=== PATIENT | male | born 1980 | race African-American/Black ===

== ENCOUNTER 2017-07-15 22:20 | Emergency (ER) | payer SELFPAY ==
[~2017-07-15] VITALS: Ht 167.6 cm; Wt 72.6 kg
[2017-07-15 23:24] VITALS: BP 159/89
[2017-07-15] MEDS ORDERED: GENTAMICIN SUL3.5 GM OP (23:31)
[2017-07-15 23:39] VITALS: BP 159/89
--- NOTE | 2017-07-18 07:11 | Emergency Room Report ---
History of Present Illness General Chief Complaint: Eye Problems Source: Patient Present Illness HPI Patient present with complaints of left eye irritation He complains of itching to the eye and also discharged the past 2 days Denies any visual change denies any pain to the eye itself Denies any injury denies any contact with foreign body Denies any neck pain or photophobia Patient History Past Medical History: see triage record Pertinent Family History: none Reviewed Nursing Documentation: PMH: Agreed, PSxH: Agreed Nursing Documentation-PMH Past Medical History: No Stated History Review of Systems All Other Systems: negative except mentioned in HPI Physical Exam Vital Signs Date Time Temp Pulse Resp B/P (MAP) Pulse Ox O2 Delivery O2 Flow Rate FiO2 07/15/17 22:27 98.1 92 18 163/93 98 07/15/17 23:24 Room Air Sp02 EP Interpretation: reviewed, normal General Appearance: well appearing, no apparent distress Head: normocephalic, atraumatic Eyes: left eye other - Conjunctival erythema, yellowish discharge medially, bilateral eye PERRL, bilateral eye EOMI ENT: hearing grossly normal, normal pharynx Neck: supple Respiratory: lungs clear Cardiovascular #1: regular rate, rhythm Musculoskeletal: normal inspection Neurologic: alert, oriented x3, responsive, patient support specialist III-XII nml as tested Skin: normal color, no rash Lymphatic: no adenopathy Medical Decision Making Diagnostic Impression: Primary Impression: conjunctivitis, bacterial ER Course Patient's exam is in line with a conjunctivitis Given the discharge in the mild irritation patient was placed on antibiotics No signs of any obvious foreign bodies The patient is stable for close followup Last Vital Signs Date Time Temp Pulse Resp B/P (MAP) Pulse Ox O2 Delivery O2 Flow Rate FiO2 07/15/17 23:39 98.0 76 18 159/89 99 Room Air Status: improved Disposition: HOME, SELF-CARE Condition: Stable Scripts Gentamicin Sulfate* (GENTAMICIN SULFATE*) 3.5 Gm Oint...g. 3.5 GM OP BID for 7 Days, GM Prov: TERESA ALVARADO D.O. 07/15/17 Referrals: NOT CHOSEN [facility]/,REFERRING (PCP) Patient Instructions: Bacterial Conjunctivitis Additional Instructions: Patient is provided with the discharge instructions notified to follow up with primary doctor in the next 2-3 days otherwise return to the er with any worsening symptoms. Please note that this report is being documented using DRAGON technology. This can lead to erroneous entry secondary to incorrect interpretation by the dictating instrument. TERESA ALVARADO D.O. Jul 18, 2017 07:11
== END 2017-07-15 23:39 | disposition home or self-care (01) ==
LOC: EMR 22:59
DX: H10.89 Other conjunctivitis (principal); H57.8 Other specified disorders of eye and adnexa
CPT/HCPCS: 99283

== ENCOUNTER 2017-07-18 20:59 | Emergency (ER) | payer SELFPAY ==
[~2017-07-18] VITALS: Ht 167.6 cm; Wt 72.6 kg
[~2017-07-18 20:59] MED LIST: GENTAMICIN SUL3.5 GM OP
[2017-07-18 21:28] VITALS: BP 154/92
[2017-07-18] MEDS ORDERED: POLYTRIM OP SOL10 ML OPHTHALM (21:50)
--- NOTE | 2017-07-18 21:50 | Emergency Room Report ---
History of Present Illness General Chief Complaint: Eye Problems Source: Patient Present Illness HPI Is a 37-year-old male with no past medical history. He was here recently for left eye swelling and had a sty. He was prescribed gentamicin. He said the stye resolved he still has puffiness to the lower lip. No fever chills but no drainage. No other complaint. Allergies: Coded Allergies: No Known Allergies (Unverified , 07/18/17) Patient History Past Medical History: see triage record, old chart reviewed Past Surgical History: none Social History: Reports: smoking Immunizations: other Reviewed Nursing Documentation: PMH: Agreed, PSxH: Agreed Nursing Documentation-PMH Past Medical History: No Stated History Review of Systems Eye: Denies: eye pain, blurred vision ENT: Denies: ear pain, nose congestion, throat swelling Respiratory: Denies: cough, shortness of breath Cardiovascular: Denies: chest pain, palpitations Gastrointestinal: Denies: abdominal pain, diarrhea, nausea, vomiting Musculoskeletal: Denies: back pain, joint pain Skin: Denies: rash Neurological: Denies: headache, numbness Endocrine: Denies: increased thirst, increased urine Hematologic/Lymphatic: Denies: easy bruising All Other Systems: negative except mentioned in HPI Physical Exam Vital Signs Date Time Temp Pulse Resp B/P (MAP) Pulse Ox O2 Delivery O2 Flow Rate FiO2 07/18/17 21:09 98.2 96 16 160/99 100 Room Air vitals with high blood pressure Sp02 EP Interpretation: reviewed, normal General Appearance: well appearing, no apparent distress, alert Head: normocephalic, atraumatic Eyes: left eye other - Left eye: puffiness and edema to lower lid. conjunctiva injected., bilateral eye PERRL, bilateral eye EOMI ENT: hearing grossly normal, normal pharynx Neck: full range of motion, supple, no meningismus Respiratory: chest non-tender, lungs clear, normal breath sounds Cardiovascular #1: regular rate, rhythm, no murmur Gastrointestinal: normal bowel sounds, non tender, no mass, no organomegaly, no bruit, non-distended Musculoskeletal: back normal, gait/station normal, normal range of motion Psychiatric: mood/affect normal Skin: warm/dry Medical Decision Making Diagnostic Impression: Primary Impression: Blepharitis of eyelid of left eye Qualified Codes: H01.005 - Unspecified blepharitis left lower eyelid ER Course Patient with blepharitis/conjunctivitis. We'll switch of antibiotics 2 Polytrim. No visual acuity problem. Last Vital Signs Date Time Temp Pulse Resp B/P (MAP) Pulse Ox O2 Delivery O2 Flow Rate FiO2 07/18/17 21:28 98.2 78 16 154/92 100 Room Air Status: improved Disposition: HOME, SELF-CARE Condition: Stable Scripts Polymyxin/Trimethoprim (Polytrim Eye Drops) 10 Ml Drops 2 DROP OPHTHALM THREE TIMES A DAY, #1 EA Instill in affected eye for 7 days Prov: ANKIT MORA M.D. 07/18/17 Patient Instructions: Bacterial Conjunctivitis, [id number] Additional Instructions: Clean eyelids with baby shampoo. Followup with your Dr. in 7 days. Return if worse. ANKIT MORA M.D. Jul 18, 2017 21:50
[2017-07-18 22:05] VITALS: BP 154/92
== END 2017-07-18 22:05 | disposition home or self-care (01) ==
LOC: EMR 21:48
DX: H01.005 Unspecified blepharitis left lower eyelid (principal); F17.200 Nicotine dependence, unspecified, uncomplicated
CPT/HCPCS: 99283

== ENCOUNTER 2019-06-12 21:14 | Emergency (ER) | payer OTHER ==
[~2019-06-12] VITALS: Ht 170.2 cm; Wt 68.0 kg
[~2019-06-12 21:14] MED LIST changes: +POLYTRIM OP SOL10 ML OPHTHALM
[2019-06-12 21:45] VITALS: BP 155/95
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
[2019-06-12] MEDS ORDERED: HYDROcodone/Acetamin 5/325 tab ORAL ONE (22:45)
[2019-06-12] MEDS ORDERED: IBUPROFEN600 MG ORAL (23:26)
[2019-06-12] MEDS ORDERED: HYDROCODON-ACE1 EA15 ORAL (23:26)
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
[2019-06-12 23:40] VITALS: BP 148/88
--- NOTE | 2019-06-12 23:40 | NUR ---
ER DISCHARGE NOTE: Patient is cleared to be discharged per ERMD, pt is aox4, on room air, with stable vital signs. pt was given dc and prescription instructions, pt was able to verbalize understanding, pt id band removed without complications. pt is able to ambulate with steady gait. pt took all belongings.
--- NOTE | 2019-06-13 11:49 | Diagnostic Imaging Report ---
Indication: Pain, swelling, trauma Technique: 3 views right hand Comparison: none Findings: There is an old healed fracture deformity of the fifth metacarpal. There is a fourth metacarpal fracture deformity which demonstrates some cortical irregularity on the lateral view and this likely acute. There is some dorsal soft tissue swelling.. Impression: Positive for acute fourth metacarpal fracture Old fifth metacarpal fracture also noted This agrees with the preliminary interpretation reported by the emergency room physician in the electronic medical record
== END 2019-06-12 23:40 | disposition home or self-care (01) ==
LOC: EMR 22:22
DX: S62.364A Nondisplaced fracture of neck of fourth metacarpal bone, right hand, initial encounter for closed fracture (principal); Y04.0XXA Assault by unarmed brawl or fight, initial encounter
CPT/HCPCS: 73130; Z7502; 29125; 99283

== ENCOUNTER 2019-06-20 16:11 | Emergency (ER) | payer OTHER ==
[~2019-06-20] VITALS: Ht 167.6 cm; Wt 74.8 kg
[~2019-06-20 16:11] MED LIST changes: +HYDROCODON-ACE1 EA15 ORAL; +IBUPROFEN600 MG ORAL
[2019-06-20 16:25] VITALS: BP 143/85
--- NOTE | 2019-06-20 16:41 | Emergency Room Report ---
History of Present Illness General Chief Complaint: Upper Extremity Injury Source: Patient Present Illness HPI 39-year-old male with history of fracture of the right metacarpal 1 week ago, was seen at [facility], x-ray was done and patient was here for follow-up visit regarding his pain. Patient reports that he was unaware that he has a follow- up with Ortho take the splint off himself swelling is noted on the affected side. Patient rating the pain 7 out of 10 without radiation. Denies any injury , tingling or numbness. Has full range of motion. Denies chest pain, shortness of breath, palpitation, or other associated symptoms. Patient also wants to be cleared to go back to work. Allergies: Coded Allergies: No Known Allergies (Unverified , 07/18/17) Patient History Past Medical History: see triage record Past Surgical History: unable to obtain Pertinent Family History: none Immunizations: UTD Reviewed Nursing Documentation: PMH: Agreed; PSxH: Agreed Nursing Documentation-PMH Past Medical History: No Stated History Review of Systems All Other Systems: negative except mentioned in HPI Physical Exam Vital Signs Date Time Temp Pulse Resp B/P (MAP) Pulse Ox O2 Delivery O2 Flow Rate FiO2 06/20/19 16:19 98.4 100 21 143/85 (104) 96 Room Air Sp02 EP Interpretation: reviewed, normal General Appearance: no apparent distress, alert, GCS 15, non-toxic Head: normocephalic, atraumatic Eyes: bilateral eye normal inspection, bilateral eye PERRL ENT: hearing grossly normal, normal pharynx, no angioedema, normal voice Neck: full range of motion, supple, supple/symm/no masses Respiratory: chest non-tender, lungs clear, normal breath sounds, no wheezing, speaking full sentences Cardiovascular #1: regular rate, rhythm, no edema, no murmur, normal capillary refill Cardiovascular #2: 2+ radial (R), 2+ radial (L) Gastrointestinal: normal inspection, normal bowel sounds, non tender, soft, no mass Genitourinary: normal inspection, no CVA tenderness Musculoskeletal: back normal, digits/nails normal, gait/station normal, normal range of motion, no calf tenderness, swelling - right dorsal hand, tender - right 4th and 5th metacarpal bones Neurologic: normal inspection, alert, oriented x3 Psychiatric: normal inspection, judgement/insight normal, memory normal Skin: no rash Lymphatic: normal inspection, no adenopathy Procedures Splinting Splinting : Consent: Verbal Location: right hand Hand-Made Type: plaster Pre-Proc Neuro Vasc Exam: normal Patient Tolerated: Well Medical Decision Making PA Attestation Diagnosis and treatment plans were reviewed and discussed with my supervising physician Dr. Larson Diagnostic Impression: Primary Impression: Metacarpal bone fracture ER Course 39-year-old male with history of fracture of the right metacarpal 1 week ago, was seen at [facility], x-ray was done and patient was here for follow-up visit regarding his pain. Patient reports that he was unaware that he has a follow- up with Ortho take the splint off himself swelling is noted on the affected side. Patient rating the pain 7 out of 10 without radiation. Denies any injury , tingling or numbness. Has full range of motion. Denies chest pain, shortness of breath, palpitation, or other associated symptoms. Patient also wants to be cleared to go back to work. Ddx considered but are not limited to : Fracture of metacarpal bone right hand, hand sprain, and strain Vital signs: are WNL, pt. is afebrile H&PE are most consistent with: Fracture of metacarpal bone right hand second encounter ORDERS: Tylenol 3, ibuprofen 800 ED INTERVENTIONS: Re-splinting DISCHARGE: At this time pt. is stable for d/c to home. Will provide printed patient care instructions, and any necessary prescriptions. Care plan and follow up instructions have been discussed with the patient prior to discharge. I gave patient a list of satellite specialist and family clinics that he could going to for referral for Ortho patient understands I cannot clear him if he has a specialist versus fracture patient also was not wearing his splint currently and he was taking it off a daily basis. No further imaging is necessary at this time as patient was just seen here a week ago diagnosed with fracture of metacarpal bone and no injury has occurred after and denies any tingling or numbness. Last Vital Signs Date Time Temp Pulse Resp B/P (MAP) Pulse Ox O2 Delivery O2 Flow Rate FiO2 06/20/19 16:25 98.4 67 21 143/85 96 Room Air Disposition: HOME, SELF-CARE Condition: Stable Scripts Ibuprofen (Ibu) 800 Mg Tablet 800 MG PO TID, #30 TAB Prov: Boby Miller 06/20/19 Acetaminophen With Codeine (T#3) (TYLENOL #3 TAB*) Y Tab 1 TAB ORAL Q12HR PRN for For Pain for 3 Days, #6 TAB Prov: Boby Miller 06/20/19 Referrals: Bonnie NEVES,REFERRING (PCP) Patient Instructions: Metacarpal Fracture, [id number] Additional Instructions: Follow with satellite specialist every time that you have a fracture you need to be seen by orthopedic for follow-up the purpose of a splint is temporarily immobilization however possible casting is needed or imaging may be requested by satellite specialist. Boby Miller Jun 20, 2019 16:41
[2019-06-20] MEDS ORDERED: ACETAMINOPHEN-1 EAC1 ORAL (16:46)
[2019-06-20] MEDS ORDERED: IBU800 MG PO (16:46)
[2019-06-20 16:51] VITALS: BP 143/85
== END 2019-06-20 16:52 | disposition home or self-care (01) ==
LOC: EMR 16:29
DX: S62.304D Unspecified fracture of fourth metacarpal bone, right hand, subsequent encounter for fracture with routine healing (principal); S62.306D Unspecified fracture of fifth metacarpal bone, right hand, subsequent encounter for fracture with routine healing; X58.XXXD Exposure to other specified factors, subsequent encounter
CPT/HCPCS: 29125; Z7502; 99282

== ENCOUNTER 2019-07-03 11:24 | Emergency (ER) | payer OTHER ==
[~2019-07-03] VITALS: Ht 167.6 cm; Wt 76.2 kg
[~2019-07-03 11:24] MED LIST changes: +ACETAMINOPHEN-1 EAC1 ORAL; +IBU800 MG PO
[2019-07-03] MEDS ORDERED: NKM (11:34)
[2019-07-03 11:41] VITALS: BP 168/111
--- NOTE | 2019-07-03 11:45 | NUR ---
ED Nurse Note: Pt came in from triage area ambulatory,a/ox4, nad noted for follow up with his rt hand that was broken. Pt was seen on the Jun with broken rt hand and had a splint applied. Pt also is requesting for UDS and STD check, Explained to the pt that due to limited resources, unable to do those blood test. Awaiting md rayo.
--- NOTE | 2019-07-03 12:07 | Emergency Room Report ---
History of Present Illness General Chief Complaint: General Complaint Source: Patient Present Illness HPI 39-year-old male with no significant past medical history here requesting a checkup on fracture in his right fourth and fifth metacarpal bone that occurred 3 weeks ago. Patient was primarily seen by Johana BEAN on June 12, 2019 and diagnosed with bacterial patient came here for follow-up a week later and he said that he was never referred to early breastfeeding care specialist. 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 Patient is back here today again requesting the same thing medical clearance for going back to work and reporting that he never received any paperwork from us with a list of early breastfeeding care specialist and orthopedic clinics. Patient presents with a habit of forgetting that he had the paperwork requesting medical clearance however I informed him today that since he has full range of motion and he has no more pain we still cannot clear him to go back to work as he needs to still see early breastfeeding care specialist. Denies tingling and numbness. Denies all other associated symptoms. Allergies: Coded Allergies: No Known Allergies (Unverified , 07/18/17) Patient History Past Medical History: see triage record Past Surgical History: unable to obtain Pertinent Family History: none Immunizations: UTD Reviewed Nursing Documentation: PMH: Agreed; PSxH: Agreed Nursing Documentation-PMH Past Medical History: No Stated History Review of Systems All Other Systems: negative except mentioned in HPI Physical Exam Vital Signs Date Time Temp Pulse Resp B/P (MAP) Pulse Ox O2 Delivery O2 Flow Rate FiO2 07/03/19 11:30 98.1 80 19 168/111 (130) 99 Room Air Sp02 EP Interpretation: reviewed, normal General Appearance: no apparent distress, alert, GCS 15, non-toxic Head: normocephalic, atraumatic Eyes: bilateral eye normal inspection, bilateral eye PERRL ENT: hearing grossly normal, normal pharynx, no angioedema, normal voice Neck: full range of motion, supple/symm/no masses Respiratory: chest non-tender, lungs clear, normal breath sounds, speaking full sentences Cardiovascular #1: regular rate, rhythm, no edema, no murmur, normal capillary refill Cardiovascular #2: 2+ radial (R), 2+ radial (L) Gastrointestinal: normal bowel sounds, non tender, soft, non-distended, no guarding, no rebound Rectal: deferred Genitourinary: normal inspection, no CVA tenderness Musculoskeletal: back normal, gait/station normal, normal range of motion, non- tender, calf tenderness Neurologic: alert, oriented x3, responsive, motor strength/tone normal, sensory intact, speech normal Psychiatric: judgement/insight normal, memory normal, mood/affect normal, no suicidal/homicidal ideation Skin: no rash Lymphatic: no adenopathy Medical Decision Making PA Attestation All diagnoses and treatment plans were reviewed and discussed with my supervising physician Dr. Paulino Diagnostic Impression: Primary Impression: Fracture of hand with routine healing ER Course 39-year-old male with no significant past medical history here requesting a checkup on fracture in his right fourth and fifth metacarpal bone that occurred 3 weeks ago. Patient was primarily seen by [facility] on June 12, 2019 and diagnosed with bacterial patient came here for follow-up a week later and he said that he was never referred to early breastfeeding care specialist. 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 Patient is back here today again requesting the same thing medical clearance for going back to work and reporting that he never received any paperwork from us with a list of early breastfeeding care specialist and orthopedic clinics. Patient presents with a habit of forgetting that he had the paperwork requesting medical clearance however I informed him today that since he has full range of motion and he has no more pain we still cannot clear him to go back to work as he needs to still see early breastfeeding care specialist. Denies tingling and numbness. Denies all other associated symptoms. Ddx considered but are not limited to: Hand sprain, hand sprain, hand fracture Vital signs: are WNL, pt. is afebrile H&PE are most consistent with : Fracture of hand with routine healing ORDERS: None ED INTERVENTIONS: None DISCHARGE: At this time pt. is stable for d/c to home. Will provide printed patient care instructions, and any necessary prescriptions. Care plan and follow up instructions have been discussed with the patient prior to discharge. A list of specialist and clinics as well as medical family clinics for patient to go to clearance assessment Last Vital Signs Date Time Temp Pulse Resp B/P (MAP) Pulse Ox O2 Delivery O2 Flow Rate FiO2 07/03/19 11:41 98.1 80 19 168/111 99 Room Air Disposition: HOME, SELF-CARE Condition: Stable Patient Instructions: Metacarpal Fracture, [id number] Additional Instructions: Follow-up with an early breastfeeding care specialist in order to get cleared to go back to work in the emergency room setting we cannot clear you to go back to work due to your fracture and needs to be done by a hand specialist Boby Miller Jul 03, 2019 12:07
--- NOTE | 2019-07-03 12:09 | NUR ---
ED Nurse Note: Seen by Boby CORNELIUS
[2019-07-03 12:30] VITALS: BP 148/82
--- NOTE | 2019-07-03 12:30 | NUR ---
ED Nurse Note: Pt was unable to be found inside the room before discharging the pt.
== END 2019-07-03 12:30 | disposition home or self-care (01) ==
LOC: EMR 12:07
DX: S62.302D Unspecified fracture of third metacarpal bone, right hand, subsequent encounter for fracture with routine healing (principal); S62.306D Unspecified fracture of fifth metacarpal bone, right hand, subsequent encounter for fracture with routine healing
CPT/HCPCS: 99281

== ENCOUNTER 2020-03-04 14:30 | Emergency (ER) | payer OTHER ==
[~2020-03-04] VITALS: Ht 167.6 cm; Wt 77.1 kg
[~2020-03-04 14:30] MED LIST changes: +NKM
[2020-03-04 14:42] VITALS: BP 127/83
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
[2020-03-04] MEDS ORDERED: Tetanus/Diptheria/Pertussis IM ONE (15:15)
[2020-03-04] MEDS ORDERED: Bacitracin Oint UD TOPIC ONE (15:15)
--- NOTE | 2020-03-04 15:20 | NUR ---
ED Nurse Note: Pt was taken to Xray, ambulatory accompanied by a tech.
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
--- NOTE | 2020-03-04 15:34 | NUR ---
ED Nurse Note: Pt returned from CT, Not in any distress.
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
[2020-03-04] MEDS ORDERED: BACITRACIN15 GM TOPIC (16:54)
[2020-03-04] MEDS ORDERED: TYLENOL EXTRA500 MG ORAL (16:54)
[2020-03-04] MEDS ORDERED: CEPHALEXIN500 MG ORAL (16:54)
[2020-03-04 17:03] VITALS: BP 130/69
--- NOTE | 2020-03-04 17:03 | NUR ---
ED Nurse Note: Pt cleared by ERPA for discharge. DC instructions was given and explained to pt and verbalized understanding of teachings. prescription sent electronically. All medical deviecs such as ID band removed. Pt is AAO x4, ambulatory and left with all personal belongings.
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
== END 2020-03-04 17:03 | disposition home or self-care (01) ==
LOC: EMR 14:53
DX: S20.212A Contusion of left front wall of thorax, initial encounter (principal); L03.113 Cellulitis of right upper limb; S03.2XXA Dislocation of tooth, initial encounter; M25.541 Pain in joints of right hand; S50.811A Abrasion of right forearm, initial encounter; S80.212A Abrasion, left knee, initial encounter; S80.211A Abrasion, right knee, initial encounter; Y04.8XXA Assault by other bodily force, initial encounter; Y92.9 Unspecified place or not applicable; Z23 Encounter for immunization
CPT/HCPCS: 71100; 73130; 90471; 90715; Z7502; 99284